=== PATIENT | male | born 1970 | race Two or more races ===

== ENCOUNTER 2023-01-22 19:24 | Emergency (ER) | payer OTHER ==
[~2023-01-22] VITALS: Ht 170.2 cm; Wt 97.0 kg
[2023-01-22] MEDS ORDERED: ACETAMINOPHEN 500 MG TAB PO ONE (20:00)
[2023-01-22 20:08] LABS: Basophils # (auto) 0 10 ^3/uL (0-0.2); Basophils % (auto) 0.5 % (0.0-2.0); Eosinophils # (auto) 0.3 10 ^3/uL (0-0.8); Eosinophils % (auto) 4.4 % (0.0-7.0); Hematocrit 40.5 % (41.0-53.0); Hemoglobin 14.8 g/dL (13.5-17.5); Lymphocytes # (auto) 1.8 10 ^3/uL (0.4-5.4); Lymphocytes % (auto) 24.7 % (10.0-50.0); Mean Corpuscular Hemoglobin 29.4 pg (28.0-32.0); Mean Corpuscular Hgb Conc. 36.4 g/dL (32.0-36.0); Mean Corpuscular Volume 80.6 fL (80.0-100.0); Monocytes # (auto) 0.7 10 ^3/uL (0-1.3); Monocytes % (auto) 9.6 % (0.0-12.0); Neutrophils # (auto) 4.3 10 ^3/uL (1.6-8.6); Neutrophils % (auto) 60.8 % (37.0-80.0); Nucleated Red Blood Cells % 0.5 %; Red Blood Cells 5.03 10^6/uL (4.5-5.90); Red Cell Distribution Width 12.9 % (11.8-14.3); White Blood Cell 7.1 10^3/uL (4.4-10.8)
[2023-01-22 20:28] LABS: Calcium 8.7 mg/dL (8.5-10.1)
[2023-01-22 20:30] LABS: BUN/Creatinine Ratio 17.7
[2023-01-22 20:33] LABS: Bilirubin, Total 0.6 mg/dL (0.2-1.0); Total Protein 7.4 g/dL (6.4-8.2)
[2023-01-22] MEDS ORDERED: POTASSIUM CHL 20 Meq TABLET PO ONE (21:15)
[2023-01-22] MEDS ORDERED: ALBUTEROL SULF 2.5 MG/0.5ML(0.5%) NEB SOLN NEB ONE (21:15)
[2023-01-22] MEDS ORDERED: IPRATROPIUM BROM 0.5 MG/2.5ML INH SOL NEB ONE (21:15)
[2023-01-22] MEDS ORDERED: ALBU108A5 IN (22:26)
[2023-01-22] MEDS ORDERED: LEVO750T64 PO (22:26)
[2023-01-22] MEDS ORDERED: ACET1CAP14 PO (22:26)
[2023-01-22] MEDS ORDERED: PROM1SOL4 PO (22:26)
[2023-01-22] MEDS ORDERED: cefTRIAXone W LIDOCAINE 1 GM IM IM ONE (22:30)
[2023-01-22] MEDS ORDERED: DexAMETHasone SOD PHOS 10MG/1ML VIAL INJ IM ONE (22:30)
[2023-01-23] MEDS ORDERED: cefTRIAXone SOD 1,000 MG VL ONE (00:04)
[2023-01-23 00:32] VITALS: BP 168/95
== END 2023-01-23 00:33 | disposition home or self-care (01) ==
LOC: ER 19:27
DX: J18.9 Pneumonia, unspecified organism (principal); I10 Essential (primary) hypertension; Z20.822 Contact with and (suspected) exposure to COVID-19
CPT/HCPCS: 36415; 71045; 80053; 84484; 85025; 87426; 87804; 93005; 94640; 96372; 99285; J0696; J1100; J7644

== ENCOUNTER 2023-11-16 23:31 | Emergency (ER) | payer OTHER ==
[~2023-11-16] VITALS: Ht 170.2 cm; Wt 104.1 kg
[~2023-11-16 23:31] MED LIST: ACET1CAP14 PO; ALBU108A5 IN; LEVO750T40 PO; PROM1SOL4 PO
[2023-11-16 23:51] VITALS: BP 141/93; PULSE 89; RESP 20; O2SAT 98
[2023-11-17 01:06] LABS: COVID19 ANTIGEN SOFIA FIA NEGATIVE (NEGATIVE); Rapid Influenza A Negative (Negative); Rapid Influenza B Negative (Negative)
[2023-11-17] MEDS ORDERED: AZIT500T66 PO (03:56)
[2023-11-17] MEDS ORDERED: PRED20TA2 PO (03:56)
[2023-11-17] MEDS ORDERED: LORA-483 GT (03:57)
[2023-11-17] MEDS ORDERED: KETOROLAC TROMETH 60MG/2ML VIAL IM ONE (04:00)
[2023-11-17] MEDS ORDERED: DexAMETHasone SOD PHOS 10MG/1ML VIAL INJ IM ONE (04:00)
[2023-11-17 04:59] LABS: Rapid Strep A Screen-Throat Negative
== END 2023-11-17 05:24 | disposition home or self-care (01) ==
LOC: ER 23:31
DX: J32.9 Chronic sinusitis, unspecified (principal); J02.9 Acute pharyngitis, unspecified; I10 Essential (primary) hypertension; Z20.822 Contact with and (suspected) exposure to COVID-19
CPT/HCPCS: 36415; 87070; 87426; 87804; 87880; J1100; J1885

== ENCOUNTER 2024-06-18 07:03 | Emergency (ER) | payer OTHER ==
[~2024-06-18] VITALS: Ht 170.2 cm; Wt 103.9 kg
[~2024-06-18 07:03] MED LIST changes: +AZIT500T66 PO; +LORA-483 GT; +PRED20TA2 PO
[2024-06-18 08:08] VITALS: BP 119/80; PULSE 100; RESP 17; TEMP 99.5; O2SAT 97
[2024-06-18 08:50] LABS: Rapid Influenza A Negative (Negative); Rapid Influenza B Negative (Negative)
[2024-06-18 09:01] LABS: COVID19 ANTIGEN SOFIA FIA POSITIVE (NEGATIVE)
[2024-06-18] MEDS ORDERED: AZIT500T66 PO (09:06)
[2024-06-18] MEDS ORDERED: IBUP1TAB5 PO (09:06)
[2024-06-18] MEDS ORDERED: BENZ100C97 PO (09:06)
[2024-06-18] MEDS ORDERED: PROM1SOL4 PO (09:06)
[2024-06-18] MEDS ORDERED: ACET1CAP14 PO (09:06)
[2024-06-18] MEDS ORDERED: ALBU108A5 IN (09:06)
== END 2024-06-18 09:14 | disposition home or self-care (01) ==
LOC: ER 07:03
DX: U07.1 COVID-19 (principal); I10 Essential (primary) hypertension
CPT/HCPCS: 36415; 71045; 87426; 87804; 99284; J7030